=== PATIENT | male | born 1945 | race Hispanic/Latino ===

== ENCOUNTER → 2019-05-27 | Outpatient (CLI) | payer OTHER | END | disposition home or self-care (01) | LOC: SHCH 15:24 | PROVIDERS: ATTEND Internal Medicine Cardiovascular Disease | DX: M79.669 Pain in unspecified lower leg (principal) | CPT/HCPCS: 93922 ==

== ENCOUNTER 2019-06-11 09:40 | Day surgery (SDC) | payer OTHER ==
[2019-06-07 10:46] LABS: BASOPHILS % (AUTO) 0.5 % (0.0-5.0); EOSINOPHILS % (AUTO) 2.6 % (0.0-8.0); LYMPHOCYTES % (AUTO) 23.7 % (21.0-51.0); MEAN CORPUSCULAR HEMOGLOBIN 28.2 pg (27.0-33.0); MEAN CORPUSCULAR HGB CONC 32.8 g/dL (32.0-36.0); MEAN CORPUSCULAR VOLUME 85.8 fL (79-99); MONOCYTES % (AUTO) 11.5 % (3.0-13.0); NEUTROPHILS % (AUTO) 61.3 % (40.0-77.0); PLATELET COUNT (AUTO) 189 K/uL (130-400); RED BLOOD CELL COUNT(AUTO) 5.36 MIL/uL (4.50-6.20); RED CELL DISTRIBUTION WIDTH 13.6 % (11.0-15.5); WHITE BLOOD COUNT (AUTO) 7.4 K/uL (4.8-10.8)
[2019-06-07 10:48] VITALS: BP 109/60
[2019-06-07 10:49] LABS: APPEARANCE,URINE Clear (CLEAR); BILIRUBIN,URINE Negative (NEGATIVE); COLOR,URINE Yellow (YELLOW); GLUCOSE, URINE (UA) Negative (NEGATIVE); KETONES,URINE Negative (NEGATIVE); LEUKOCYTE ESTERASE ,URINE Negative (NEGATIVE); NITRATE,URINE Negative (NEGATIVE); OCCULT BLOOD,URINE Negative (NEGATIVE); PH,URINE 5.5 (5.0-8.0); PROTEIN,URINE Negative (NEGATIVE); UROBILINOGEN,URINE 0.2 mg/dL (0.2-1.0)
[2019-06-07 10:55] LABS: POTASSIUM 4.3 mmol/L (3.5-5.1)
[2019-06-07 11:34] LABS: INR 1.01 (0.85-1.15); PARTIAL THROMBOPLASTIN TIME 27.2 SEC (26.3-35.5); PROTHROMBIN TIME 10.6 SEC (9.6-11.6)
[~2019-06-11] VITALS: Ht 167.6 cm; Wt 91.4 kg
[2019-06-11] VITALS (13 sets, daily range): BP systolic 107–132; BP diastolic 60–76
[~2019-06-11 09:40] MED LIST: ALBU8.5H8 IH; ASPI-555 PO; FINA5TAB41 PO; FLUT16H NASAL; FURO20TA4 PO; GABA-529 PO; LORA5SOL62 PO; MECL-183 PO; METF-444 PO; MIRA25TA PO; MONT10TA24 PO; NITR0.4T50 SL; ROSU20TA31 PO; TAMS-1 PO
[2019-06-11] MEDS ORDERED: SODIUM CHLORIDE 0.9% 1000ML 1,000 ML IV ONE (10:31)
[2019-06-11] MEDS ORDERED: SODIUM BICARB 50MEQ 50ML VIAL ONE (14:38)
[2019-06-11] MEDS ORDERED: NITROGLYCERIN 1 MG/VIAL VIAL IV ONE (14:38)
[2019-06-11] MEDS ORDERED: IOHEXOL-350 50ML VIAL IV ONE ×2 (14:38→16:05)
[2019-06-11] MEDS ORDERED: MIDAZOLAM HCL 1 MG/ML 2ML VIAL ONE (14:39)
[2019-06-11] MEDS ORDERED: FENTANYL CITRATE PF 50 MCG/1 ML 2ML VIAL ONE (14:39)
[2019-06-11] MEDS ORDERED: LIDOCAINE HCL 2% 20ML ONE (14:39)
[2019-06-11] MEDS ORDERED: IOHEXOL 350 MG/ML 100ML INFUS..BTL IV ONE ×2 (14:39→15:06)
[2019-06-11] MEDS ORDERED: BIVALIRUDIN 250 MG/VIAL IV ONE (15:09)
--- NOTE | 2019-06-11 20:50 | NUR ---
Pt discharged home. Pt tolerated fluids/solids well, ambulating well. Denies any severe pain, nausea or dizziness. Dressing to right groin remains clean, dry, and intact, site soft and non-tender. Pt instructed in routine and emergency care of cath site. Pt verbalized understanding. Pt provided with copy of HOME MED REC and instructed to resume Metformin on 06/12/[address] Sanches. Pt and family denies any further questions at this time.
== END 2019-06-11 20:50 | disposition home or self-care (01) ==
LOC: DAH 09:40
PROVIDERS: ATTEND Internal Medicine Cardiovascular Disease
DX: I25.810 Atherosclerosis of coronary artery bypass graft(s) without angina pectoris (principal); I10 Essential (primary) hypertension; E78.5 Hyperlipidemia, unspecified; G47.33 Obstructive sleep apnea (adult) (pediatric); I25.2 Old myocardial infarction; E11.42 Type 2 diabetes mellitus with diabetic polyneuropathy; Z79.82 Long term (current) use of aspirin; Z79.899 Other long term (current) drug therapy; Z79.01 Long term (current) use of anticoagulants; Z90.49 Acquired absence of other specified parts of digestive tract; Z79.84 Long term (current) use of oral hypoglycemic drugs; Z82.49 Family history of ischemic heart disease and other diseases of the circulatory system
CPT/HCPCS: 36415; 71045; 80048; 81003; 82948 ×2; 85025; 85610; 85730; 93005; 93461; A4215; A4216; A4221; A4222; A4223 ×3; A4606; A4663; C1760; C1769 ×2; C1894 ×3; J1644; J2250; J3010; J3490 ×3; J7030; Q9965 ×3; Q9967 ×3; 99156; 99157; J0583